=== PATIENT | female | born 1950 | race Caucasian/White ===

== ENCOUNTER 2018-12-21 11:25 | Emergency (ER) | payer OTHER ==
[~2018-12-21] VITALS: Ht 160 cm; Wt 76.0 kg
[2018-12-21 11:30] VITALS: Ht 160 cm; Wt 76.0 kg
[2018-12-21 12:04] LABS: CALCIUM 9.4 mg/dL (8.5-10.1); CARBON DIOXIDE 29.9 mmol/L (21-32); CHLORIDE SERUM 101 mmol/L (98-107); CREATININE SERUM 0.7 mg/dL (0.6-1.0); GFR1 > 60 mL/min; GLUCOSE SERUM 122 mg/dL (74-106); POTASSIUM SERUM 4.3 mmol/L (3.5-5.1); SODIUM SERUM 139 mmol/L (136-145)
[2018-12-21 13:37] VITALS: BP 159/99
== END 2018-12-21 13:37 | disposition home or self-care (01) ==
LOC: ED 11:25
PROVIDERS: Emergency Medicine
DX: I10 Essential (primary) hypertension (principal)